=== PATIENT | male | born 1970 | race Caucasian/White ===

== ENCOUNTER 2020-03-26 | Emergency (ER) | payer SELFPAY ==
--- NOTE | 2020-03-26 20:44 | ED.PDOC ---
History of Present Illness - General Chief Complaint: Head Injury Stated Complaint: Head/facial injury Time Seen by Provider: 03/26/20 20:42 Source: patient, RN notes reviewed, Vital Signs reviewed, EMS notes reviewed Exam Limitations: intoxication - mild - History of Present Illness Initial Comments: This is a 49-year-old male transported by EMS from [facility] after he reportedly fell at a camp site, striking his head multiple times according to EMS run sheet. There was no loss of consciousness. He is intoxicated, stating that he drank a bottle of liquor this evening. He denies any pain or injury at this time. C-collar was placed by EMS crew in route. EMS was called by friends at the campsite.He denies taking any blood thinners. Denies any medical issues. Review of Systems - Review of Systems Constitutional: Denies: chills, fever EENTM: Denies: nose pain, throat pain, mouth pain Respiratory: Denies: orthopnea, short of breath Cardiology: Denies: chest pain, edema, syncope Gastrointestinal/Abdominal: Denies: constipation, diarrhea, nausea, vomiting Musculoskeletal: Denies: back pain, joint pain, joint swelling, neck pain Skin: States: lesions. Denies: rash Neurological: Denies: headache, numbness, paresthesia, seizure, tingling, tremors, weakness Physical Exam - Physical Exam General Appearance: Alert, Comfortable, No apparent distress, Other - Appears intoxicated, Smells heavily of alcohol Head Injury: other - Multiple superficial abrasions to the left forehead, left cheek, nasal bridge, no suturable lacerations. Negative joseph sign, negative raccoon eyes. There are no scalp hematomas. Eye Exam: bilateral normal ENT Exam: hearing grossly normal, no evidence of ENT injury, no dental injury, other - Midface is stable, TMs are normal, no hemotympanum. There is no septal hematoma. Pupils are equal round and reactive bilaterally. Neck Exam: non-tender, full range of motion, normal alignment, normal inspection, other - Patient initially presented with a c-collar in place, he had no tenderness on examination. 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 Exam: normal hearing, PERRL Motor/Sensory: no motor deficit, no sensory deficit Skin Exam: normal color, warm/dry, rash - There is a small 2 cm linear abrasion to the right distal tib-fib, no active bleeding - Angie Coma Score Best Eye Response (Angie): (4) open spontaneously Best Verbal Response (Angie): (5) oriented Best Motor Response (Angie): (6) obeys commands [place] Total: 15 - Speech slurred due to alcohol intoxication, but mental st atus and verbal responses are normal Progress - Progress Progress: 03/26/20 20:50 The patient reports that police on scene gave him the option to come to the emergency room or to be arrested for public intoxication. He elected to come to the emergency room for evaluation, but once here has decided he does not want any further work-up. I discussed my concern about a possible head injury given his alcohol intoxication and the report that he "hit his head multiple times". I recommended CT head/C-spine. Patient adamantly refuses. He states he is concerned about the cost of CT and that it will "ruin his credit." I explained that I am not trying to over bill him, but the mechanism and unclear nature of his injuries warrants CT to rule out any life threats. When I continued to recommend CT to rule out any life-threatening injuries, his behavior began to escalate. He states that he does not want any further evaluation in the emergency room and is refusing any treatment today. I recommended he update his tetanus shot. I offered to keep him here in the emergency room to observe for decline in mental status. He does not have a sober ride or a sober driver wheelchair to take him home. He states "I need to get to my truck". I explained that he is certainly too intoxicated to drive his vehicle. At this point the patient s tormed out of the emergency department out of the ambulance bay. Police were notified. 03/26/20 20:59 Patient has agreed to sign AMA form. RN working to find a Lyft ride back to his campsite.Kahlil CATHERINE are here here in the ED parking lot seeing the patient. Departure - Departure Clinical Impression: Fall Qualifiers: Encounter type: initial encounter Qualified Code(s): W19.XXXA - Unspecified fall, initial encounter Facial abrasion Qualifiers: Encounter type: initial encounter Qualified Code(s): S00.81XA - Abrasion of other part of head, initial encounter Facial contusion Qualifiers: Encounter type: initial encounter Qualified Code(s): S00.83XA - Contusion of other part of head, initial encounter Alcohol intoxication Qualifiers: Complication of substance-induced condition: uncomplicated Qualified Code(s): F10.920 - Alcohol use, unspecified with intoxication, uncomplicated Disposition: Left Against Medical Advice Condition: Fair Departure Forms: ED Discharge - Pt. Copy, Patient Portal Self Enrollment Instructions: DI for Concussion, DI for Closed Head Injury Diet: resume usual diet
== END 2020-03-26 20:45 | disposition left against medical advice (07) ==